=== PATIENT | male | born 1970 | race African-American/Black ===

== ENCOUNTER 2018-03-25 10:59 | Emergency (ER) | END 2018-03-25 12:35 | disposition home or self-care (01) ==

== ENCOUNTER 2018-03-27 09:32 | Emergency (ER) | payer OTHER ==
[~2018-03-27] VITALS: Wt 93.7 kg
[~2018-03-27 09:32] MED LIST: ACET500T98 PO; D-ME118S24 PO; IBUP-1542 PO; SODI30SP2 NS
[2018-03-27 09:34] VITALS: BP 160/70; PULSE 78; RESP 18
--- NOTE | 2018-03-27 10:24 | ERD ---
ER Documentation Chief Complaint Chief Complaint SUTURE RECHECK HPI 47-year-old male presenting for wound check. Patient sustained a small laceration to his right upper forehead 2 days ago. Patient was seen in the ER and had Steri-Strips applied. Patient is presenting for wound check. He states that there was some mild bleeding earlier today. Steri-Strips have been intact. Denies any vomiting. Has not taken medications for pain. Has a mild headache. Denies other medical problems. NKDA. Surgical history denies. Social history denies ROS All systems reviewed and are negative except as per history of present illness. Medications Home Meds Active Scripts Acetaminophen (Tylenol) 500 Mg Tab, 500 MG PO Q4H PRN for PAIN, #30 TAB Prov:SHAKIRA PACE DO 03/25/18 Ibuprofen* (Motrin*) 600 Mg Tab, 600 MG PO Q6H PRN for PAIN AND OR ELEVATED TEMP, #30 TAB Prov:SHAKIRA PACE DO 03/25/18 Sodium Chloride (Saline Nasal [place]) 30 Ml [place], 30 ML NS BID PRN for NASAL CONGESTION, #1 BOTTLE Prov:SHAKIRA PACE DO 03/25/18 D-Methorphan Hb/P-Epd HCl/Bpm (Hdzsiyakjk-Itvdyrlfkag-Zv Syr) 118 Ml Syrup, 5 ML PO Q4H PRN for COUGH, #1 BOTTLE Prov:SHAKIRA PACE DO 03/25/18 Allergies Allergies: Coded Allergies: No Known Allergy (Unverified , 03/27/18) PMhx/Soc Medical and Surgical Hx: pt denies Medical Hx, pt denies Surgical Hx Hx Alcohol Use: No Hx Substance Use: No Hx Tobacco Use: No FmHx Family History: No diabetes, No coronary disease, No other Physical Exam Vitals Vital Signs Date Temp Pulse Resp B/P (MAP) Pulse Ox O2 O2 Flow FiO2 Time Delivery Rate 03/27/18 98.1 78 18 160/70 99 09:34 (100) Physical Exam GENERAL: The patient is well-appearing, well-nourished, in no acute distress HEENT: Atraumatic. Conjunctivae are pink. Pupils equal, round, and reactive to light. There is no scleral icterus. Tympanic membranes clear bilaterally. Oropharynx clear. CHEST: Clear to auscultation bilaterally. There are no rales, wheezes or rhonchi. HEART: Regular rate and rhythm. No murmurs, clicks, rubs or gallops. No S3 or S4. NEUROLOGIC: Alert and oriented. Cranial nerves II through XII intact. Motor strength in all 4 extremities with 5 out of 5 strength. Sensation grossly intact. Normal speech and gait. SKIN: Small superficial abrasion noted to forehead with no dehiscence of the wound. Mild bleeding noted. No depression noted of the skull and no surrounding erythema or fluctuance. No purulence Procedures/MDM ER course: Site was cleaned and bandage was applied. I left the wound open and did not apply Steri-Strips as the wound needs to dry. MDM: 47-year-old male presenting for wound check. Patient's neuro exam is within normal limits and patient is talking appropriately. I have low suspicion for intracranial hemorrhage or neuro deficit. I will suspicion for fracture. I have low suspicion for wound infection. Wound is moist and requires drying so I recommended patient to keep it air dry and open after today's visit. Patient is told symptoms change or worsen to immediately return to the ER. All questions answered at discharge Departure Diagnosis: Primary Impression: Follow-up examination for injury Condition: Stable Patient Instructions: Wound Care Referrals: [facility] YOU HAVE RECEIVED A MEDICAL SCREENING EXAM AND THE RESULTS INDICATE THAT YOU DO NOT HAVE A CONDITION THAT REQUIRES URGENT TREATMENT IN THE EMERGENCY DEPARTMENT. FURTHER EVALUATION AND TREATMENT OF YOUR CONDITION CAN WAIT UNTIL YOU ARE SEEN IN YOUR DOCTORS OFFICE WITHIN THE NEXT 1-2 DAYS. IT IS YOUR RESPONSIBILITY TO MAKE AN APPOINTMENT FOR FOLOW-UP CARE. IF YOU HAVE A PRIMARY DOCTOR --you should call your primary doctor and schedule an appointment IF YOU DO NOT HAVE A PRIMARY DOCTOR YOU CAN CALL OUR PHYSICIAN REFERRAL HOTLINE AT IF YOU CAN NOT AFFORD TO SEE A PHYSICIAN YOU CAN CHOSE FROM THE FOLLOWING OUR [facility] [address] [facility]. [facility] [address] [facility] [address] [facility]. [facility] [address] [facility]. [facility] [address] [facility]. [facility]. [address] Additional Instructions: FOLLOW UP WITH YOUR PRIMARY CARE PHYSICIAN TOMORROW.Return to this facility if you are not improving as expected. IMANI GUIDRY PA-C Mar 27, 2018 10:24
== END 2018-03-27 10:30 | disposition home or self-care (01) ==
LOC: FTE 09:32
DX: Z48.01 Encounter for change or removal of surgical wound dressing (principal)
CPT/HCPCS: 99281

== ENCOUNTER 2018-11-06 01:14 | Emergency (ER) | payer OTHER ==
[~2018-11-06] VITALS: Ht 177.8 cm; Wt 93.2 kg
[2018-11-06 01:24] VITALS: Ht 177.8 cm; Wt 93.2 kg
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
[2018-11-06] MEDS ORDERED: DIPHTH/TET/ACEL PERTUSS (ADULT) 0.5 ML VIAL IM* ONE (02:00)
[2018-11-06 06:42] VITALS: BP 147/100; PULSE 86; RESP 18
== END 2018-11-06 06:42 | disposition short-term general hospital (02) ==
LOC: E/R 01:14
DX: S02.91XA Unspecified fracture of skull, initial encounter for closed fracture (principal); S02.19XA Other fracture of base of skull, initial encounter for closed fracture; S02.2XXA Fracture of nasal bones, initial encounter for closed fracture; S02.40EA Zygomatic fracture, right side, initial encounter for closed fracture; S02.40FA Zygomatic fracture, left side, initial encounter for closed fracture; Y04.0XXA Assault by unarmed brawl or fight, initial encounter; Z23 Encounter for immunization
CPT/HCPCS: 36415; 70450; 70486; 72125; 80048; 80307; 85025; 90471; 90715